=== PATIENT | male | born 1960 | race Caucasian/White ===

== ENCOUNTER 2017-04-26 20:08 | Emergency (ER) | payer MEDICARE, OTHER ==
[~2017-04-26] VITALS: Ht 172.7 cm; Wt 72.6 kg
[2017-04-26] MEDS ORDERED: NITROGLYCERIN OINT 1 GM PACKET TP ONE ×2 (21:00→21:25)
[2017-04-26] MEDS ORDERED: ASPIRIN 81 MG TAB.CHEW PO ONE (21:00)
[2017-04-26] MEDS ORDERED: HYDROCODONE/APAP 5-325MG TABLET PO ONE (21:00)
[2017-04-26] MEDS ORDERED: ASPIRIN 81 MG TAB.CHEW ONE (21:25)
[2017-04-26] MEDS ORDERED: HYDROCODONE/APAP 5-325MG TABLET ONE (21:25)
--- NOTE | 2017-04-26 21:34 | NUR ---
Pt ambulated to room with steady gait. Pt c/o cough, cold and congestion for approx 1 wk. Pt also c/o intermittent left arm pain for approx 1mo. Pt changed into gown and placed on monitor. Pt NSR to ST. EKG obtained. Pt seen by Dr. Fine. IV established, labs drawn and sent. Pt medicated with aspirin and nitro paste applied. Pt refused norco at this time. Pt resting in position of comfort for self, family remains at bedside.
[2017-04-26 21:42] LABS: BASOPHILS # (AUTO) 0.2 K/uL (0.0-8.0); BASOPHILS % (AUTO) 1.9 % (0.0-2.0); EOSINOPHILS # (AUTO) 0.2 K/uL (0.0-0.7); EOSINOPHILS % (AUTO) 2.6 % (0.0-7.0); HEMOGLOBIN 14.1 G/DL (14.0-18.0); LYMPHOCYTES # (AUTO) 1.5 K/UL (0.8-4.8); LYMPHOCYTES % (AUTO) 16.5 % (20.5-51.5); MEAN CORPUSCULAR HEMOGLOBIN 29.6 UUG (27.0-31.0); MEAN CORPUSCULAR HGB CONC 34 g/dL (32.0-37.0); MEAN CORPUSCULAR VOLUME 88.2 FL (82.0-92.0); MONOCYTES # (AUTO) 0.7 K/UL (0.1-1.30); NEUTROPHILS # (AUTO) 6.6 K/UL (1.8-8.9); PLATELET COUNT (AUTO) 208 K/UL (150-450); RED BLOOD CELL COUNT(AUTO) 4.76 MIL/UL (4.7-6.1); WHITE BLOOD COUNT (AUTO) 9.2 K/UL (4.0-11.2)
[2017-04-26 21:53] LABS: CREATININE 1.2 mg/dL (0.6-1.3); POTASSIUM 4.1 mmol/L (3.5-5.1)
[2017-04-26 22:06] LABS: BILIRUBIN,DIRECT 0.1 mg/dL (0.0-0.2); BILIRUBIN,TOTAL 0.4 mg/dL (0.2-1.0); TOTAL PROTEIN, SERUM 7.6 g/dL (6.4-8.2)
[2017-04-26] MEDS ORDERED: predniSONE 20 MG TABLET PO ONE (23:00)
[2017-04-26] MEDS ORDERED: predniSONE 20 MG TABLET ONE (23:03)
--- NOTE | 2017-04-26 23:15 | NUR ---
Pt declines any further studies. Pt wanting to go home. IV dc'd, catheter intact. Drsg applied. No problems noted to site. Dr. Fine spoke in depth with pt and pt's family. Pt signed out AMA but was given ACI and rx by Dr. Fine. Pt verbalized understanding of dc instructions. Pt ambulated out of ER with steady gait and ride home.
[2017-04-27 02:18] VITALS: BP 125/70
== END 2017-04-26 23:15 | disposition home or self-care (01) ==
LOC: ER 20:08
DX: R07.9 Chest pain, unspecified (principal); J40 Bronchitis, not specified as acute or chronic; E11.9 Type 2 diabetes mellitus without complications; I10 Essential (primary) hypertension; I25.10 Atherosclerotic heart disease of native coronary artery without angina pectoris; F17.210 Nicotine dependence, cigarettes, uncomplicated; E78.00 Pure hypercholesterolemia, unspecified
CPT/HCPCS: 36415; 70030-TC; 71010; 85025; 87400; 93005; A4663; J7512

== ENCOUNTER 2019-02-05 17:01 | Emergency (ER) | payer MEDICARE, MEDICAID ==
[~2019-02-05] VITALS: Ht 180.3 cm; Wt 83.5 kg
[2019-02-05] MEDS ORDERED: IBUPROFEN 600 MG TABLET PO ONE (17:30)
[2019-02-05] MEDS ORDERED: IBUPROFEN 600 MG TABLET ONE (17:33)
== END 2019-02-23 12:51 | disposition home or self-care (01) ==
LOC: ER 17:01
DX: M25.462 Effusion, left knee (principal); M79.662 Pain in left lower leg; I10 Essential (primary) hypertension; F17.200 Nicotine dependence, unspecified, uncomplicated; E11.9 Type 2 diabetes mellitus without complications
CPT/HCPCS: A4663